=== PATIENT | female | born 1930 | race Caucasian/White ===

== ENCOUNTER 2018-08-22 14:42 | Inpatient (IN) | payer MEDICARE, BC ==
[2018-08-22 16:24] LABS: ADD MAN DIFF? NO
[2018-08-22 16:30] LABS: WHITE BLOOD COUNT 9.4 10^3/ul (4.8-10.8)
[2018-08-22 16:30] LABS: BASOPHIL # 0.1 10^3/ul (0.0-0.1); BASOPHILS % 0.9 % (0.0-2.0); EOSINOPHILS # 0.1 10^3/ul (0.0-0.5); EOSINOPHILS % 1.1 % (0.0-7.0); HEMOGLOBIN 12.5 g/dl (12.0-16.0); LYMPHOCYTES # 1.5 10^3/ul (0.8-2.9); LYMPHOCYTES % 16.2 % (15.0-51.0); MEAN CORPUSCULAR HEMOGLOBIN 27.7 pg (29.0-33.0); MEAN CORPUSCULAR HGB CONC 32.1 g/dl (32.0-37.0); MEAN CORPUSCULAR VOLUME 86.3 fl (82.0-101.0); MEAN PLATELET VOLUME 10.2 fl (7.4-10.4); MONOCYTE # 0.7 10^3/ul (0.3-0.9); MONOCYTES % 7.1 % (0.0-11.0); NEUTROPHILS % 74.5 % (39.0-77.0); PLATELET COUNT 428 10^3/UL (140-415); RED BLOOD COUNT 4.52 10^6/ul (4.20-5.40); RED CELL DISTRIBUTION WIDTH 14.4 % (11.5-14.5)
[2018-08-22 16:48] LABS: ANION GAP 15 (5-13); BLOOD UREA NITROGEN 46 mg/dl (7-20); CALCIUM 11.1 mg/dl (8.4-10.2); CARBON DIOXIDE 20 mmol/L (21-31); CHLORIDE 109 mmol/L (97-110); CREATININE 1.34 mg/dl (0.44-1.00); GLUCOSE 113 mg/dl (70-220); POTASSIUM 4.2 mmol/L (3.5-5.1); SODIUM 144 mmol/L (135-144)
[2018-08-22 16:58] LABS: TROPONIN-I 0.013 ng/ml (0.000-0.120)
[2018-08-22] MEDS: ENALAPRILAT 1.25 MG INJ IV (17:06)
[2018-08-22] MEDS: LABETALOL HCL 20MG INJ IV (17:57)
[2018-08-22] MEDS ORDERED: ONDANSETRON 4 MG TAB PO (18:00)
[2018-08-22] MEDS ORDERED: NACL 0.9% 3 ML SYG IV (18:00)
[2018-08-22] MEDS ORDERED: ONDANSETRON 4 MG INJ IV (18:00)
[2018-08-22] MEDS ORDERED: ZOLPIDEM 5 MG TAB PO (18:00)
[2018-08-22] MEDS ORDERED: ACETAMINOPHEN 325 MG TAB PO ×2 (18:00)
[2018-08-22 18:17] LABS: ALBUMIN 3.2 g/dl (3.3-4.9)
[2018-08-22 18:53] LABS: IONIZED CALCIUM 1.4 mmol/L (1.1-1.4)
[2018-08-22] MEDS: LISINOPRIL 20 MG TAB PO (19:23)
[2018-08-22] MEDS: hydrALAzine 20 MG INJ IV (20:19)
[2018-08-22] MEDS: ATORVASTATIN 80 MG TAB PO (23:09)
[2018-08-23] MEDS: PANTOPRAZOLE (EC) 40 MG TAB PO (06:18)
[2018-08-23 06:51] LABS: ALANINE AMINOTRANSFERASE 23 IU/L (13-69); ALBUMIN 3.4 g/dl (3.3-4.9); ALBUMIN/GLOBULIN RATIO 1.41; ALKALINE PHOSPHATASE 40 IU/L (42-121); ANION GAP 10 (5-13); ASPARTATE AMINO TRANSFERASE 21 IU/L (15-46); BILIRUBIN,INDIRECT 0.3 mg/dl (0-1.1); BILIRUBIN,TOTAL 0.3 mg/dl (0.2-1.3); BLOOD UREA NITROGEN 46 mg/dl (7-20); CALCIUM 9.6 mg/dl (8.4-10.2); CARBON DIOXIDE 22 mmol/L (21-31); CHLORIDE 111 mmol/L (97-110); CREATININE 1.41 mg/dl (0.44-1.00); GLUCOSE 92 mg/dl (70-220); POTASSIUM 4.4 mmol/L (3.5-5.1); SODIUM 143 mmol/L (135-144); TOTAL PROTEIN 5.8 g/dl (6.1-8.1)
[2018-08-23] MEDS: DEXTROSE 5%-0.45% NACL 1,000 ML IV ×2 (08:53→21:20)
[2018-08-23] MEDS: LISINOPRIL 20 MG TAB PO (08:53)
[2018-08-23] MEDS: ENOXAPARIN 30 MG/0.3 ML SYG SC (09:03)
[2018-08-23] MEDS: ATORVASTATIN 80 MG TAB PO (21:45)
[2018-08-24] MEDS: PANTOPRAZOLE (EC) 40 MG TAB PO (06:15)
[2018-08-24 06:42] LABS: ANION GAP 7 (5-13); BLOOD UREA NITROGEN 44 mg/dl (7-20); CALCIUM 9.6 mg/dl (8.4-10.2); CARBON DIOXIDE 22 mmol/L (21-31); CHLORIDE 112 mmol/L (97-110); CREATININE 1.19 mg/dl (0.44-1.00); GLUCOSE 93 mg/dl (70-220); POTASSIUM 4.7 mmol/L (3.5-5.1); SODIUM 141 mmol/L (135-144)
[2018-08-24] MEDS: LISINOPRIL 20 MG TAB PO (08:35)
[2018-08-24] MEDS: ENOXAPARIN 30 MG/0.3 ML SYG SC (08:42)
[2018-08-24] MEDS: DOCUSATE SODIUM 100 MG CAP PO (09:48)
[2018-08-24] MEDS: DEXTROSE 5%-0.45% NACL 1,000 ML IV ×2 (10:40→23:07)
[2018-08-24] MEDS: DOXAZOSIN 4 MG TAB PO (11:46)
[2018-08-24] MEDS: ATORVASTATIN 80 MG TAB PO (20:04)
[2018-08-25] MEDS: PANTOPRAZOLE (EC) 40 MG TAB PO (06:16)
[2018-08-25] MEDS: LISINOPRIL 20 MG TAB PO (08:32)
[2018-08-25] MEDS: DOXAZOSIN 4 MG TAB PO (08:32)
[2018-08-25] MEDS: ENOXAPARIN 30 MG/0.3 ML SYG SC (08:44)
[2018-08-25] MEDS: DEXTROSE 5%-0.45% NACL 1,000 ML IV (13:20)
[2018-08-25] MEDS: ATORVASTATIN 80 MG TAB PO (20:28)
[2018-08-26 00:44] LABS: ADD UMIC NO; UR ASCORBIC ACID NEGATIVE (NEGATIVE); UR BACTERIA FEW /HPF (NONE SEEN); UR BILIRUBIN (Dip) NEGATIVE (NEGATIVE); UR BLOOD (Dip) NEGATIVE (NEGATIVE); UR CLARITY SLIGHTLY CLOUDY (CLEAR); UR COLOR YELLOW (YELLOW); UR GLUCOSE (Dip) NEGATIVE (NEGATIVE); UR KETONES (Dip) NEGATIVE (NEGATIVE); UR LEUKOCYTE ESTERASE (Dip) NEGATIVE Leu/ul (NEGATIVE); UR NITRITE (Dip) NEGATIVE (NEGATIVE); UR RBC 0 /HPF (0-5); UR SPECIFIC GRAVITY (Dip) 1.012 (1.003-1.030); UR TOTAL PROTEIN (Dip) NEGATIVE (NEGATIVE); UR UROBILINOGEN (Dip) NEGATIVE (NEGATIVE); UR WBC 1 /HPF (0-5)
[2018-08-26] MEDS: PANTOPRAZOLE (EC) 40 MG TAB PO (06:08)
[2018-08-26 06:31] LABS: ADD MAN DIFF? NO
[2018-08-26 06:35] LABS: BASOPHIL # 0.1 10^3/ul (0.0-0.1); BASOPHILS % 0.9 % (0.0-2.0); EOSINOPHILS # 0.2 10^3/ul (0.0-0.5); EOSINOPHILS % 2.2 % (0.0-7.0); HEMATOCRIT 30.3 % (37.0-47.0); HEMOGLOBIN 9.6 g/dl (12.0-16.0); LYMPHOCYTES # 1.5 10^3/ul (0.8-2.9); LYMPHOCYTES % 21.5 % (15.0-51.0); MEAN CORPUSCULAR HEMOGLOBIN 27.6 pg (29.0-33.0); MEAN CORPUSCULAR HGB CONC 31.7 g/dl (32.0-37.0); MEAN CORPUSCULAR VOLUME 87.1 fl (82.0-101.0); MEAN PLATELET VOLUME 10.4 fl (7.4-10.4); MONOCYTE # 0.6 10^3/ul (0.3-0.9); MONOCYTES % 8.3 % (0.0-11.0); NEUTROPHIL # 4.6 10^3/ul (1.6-7.5); NEUTROPHILS % 66.8 % (39.0-77.0); PLATELET COUNT 273 10^3/UL (140-415); RED BLOOD COUNT 3.48 10^6/ul (4.20-5.40); RED CELL DISTRIBUTION WIDTH 14.4 % (11.5-14.5)
[2018-08-26 06:35] LABS: WHITE BLOOD COUNT 6.9 10^3/ul (4.8-10.8)
[2018-08-26 07:07] LABS: ANION GAP 7 (5-13); BLOOD UREA NITROGEN 41 mg/dl (7-20); CALCIUM 8.9 mg/dl (8.4-10.2); CARBON DIOXIDE 22 mmol/L (21-31); CHLORIDE 112 mmol/L (97-110); CREATININE 1.01 mg/dl (0.44-1.00); GLUCOSE 91 mg/dl (70-220); POTASSIUM 4.5 mmol/L (3.5-5.1); SODIUM 141 mmol/L (135-144)
[2018-08-26] MEDS: ASPIRIN 81 MG TAB PO (08:13)
[2018-08-26] MEDS: LISINOPRIL 20 MG TAB PO (08:17)
[2018-08-26] MEDS: DOXAZOSIN 4 MG TAB PO (08:17)
[2018-08-26] MEDS: IOHEXOL 300MG/ML 150 ML BTL (12:11)
[2018-08-26] MEDS: SOD CHLORIDE 0.9% 100 ML (12:11)
== END 2018-08-26 18:20 | disposition home or self-care (01) | DRG 305 ==
LOC: E/R 14:42 → 6WM 17:33
DX: I16.0 Hypertensive urgency (principal); N17.9 Acute kidney failure, unspecified; E87.2 Acidosis; L89.021 Pressure ulcer of left elbow, stage 1; L89.011 Pressure ulcer of right elbow, stage 1; G62.9 Polyneuropathy, unspecified; G30.9 Alzheimer's disease, unspecified; F02.80 Dementia in other diseases classified elsewhere, unspecified severity, without behavioral disturbance, psychotic disturbance, mood disturbance, and anxiety; D64.9 Anemia, unspecified; D47.3 Essential (hemorrhagic) thrombocythemia; I10 Essential (primary) hypertension; K21.9 Gastro-esophageal reflux disease without esophagitis; E55.9 Vitamin D deficiency, unspecified; F32.9 Major depressive disorder, single episode, unspecified; M81.0 Age-related osteoporosis without current pathological fracture; E78.5 Hyperlipidemia, unspecified; F41.9 Anxiety disorder, unspecified
CPT/HCPCS: 36415; 71045; 71260; 80048; 80053; 81001; 81003; 82040; 82330; 84484; 85025; 93005; 96374; 99285-25